=== PATIENT | female | born 1975 | race Two or more races ===

== ENCOUNTER 2018-03-30 10:05 | Outpatient (CLI) | payer OTHER | END 2018-03-30 10:11 | disposition home or self-care (01) | LOC: MAMO-SONO 10:05 | DX: Z12.31 Encounter for screening mammogram for malignant neoplasm of breast (principal); N64.51 Induration of breast; N92.4 Excessive bleeding in the premenopausal period ==

== ENCOUNTER → 2021-02-15 09:59 | Outpatient (CLI) | payer OTHER | END | disposition home or self-care (01) | LOC: LAB 09:59 | PROVIDERS: ATTEND General Practice | DX: E03.8 Other specified hypothyroidism (principal); Z00.01 Encounter for general adult medical examination with abnormal findings; Z12.11 Encounter for screening for malignant neoplasm of colon; Z11.3 Encounter for screening for infections with a predominantly sexual mode of transmission; Z11.4 Encounter for screening for human immunodeficiency virus [HIV]; Z13.228 Encounter for screening for other metabolic disorders; Z13.220 Encounter for screening for lipoid disorders; Z13.0 Encounter for screening for diseases of the blood and blood-forming organs and certain disorders involving the immune mechanism; Z13.1 Encounter for screening for diabetes mellitus; Z12.31 Encounter for screening mammogram for malignant neoplasm of breast; Z68.34 Body mass index [BMI] 34.0-34.9, adult; R73.03 Prediabetes ==

== ENCOUNTER → 2021-02-28 | Outpatient (CLI) | payer OTHER | END | disposition home or self-care (01) | LOC: MAMO-SONO 08:15 | PROVIDERS: ATTEND General Practice | DX: Z00.01 Encounter for general adult medical examination with abnormal findings (principal); Z12.11 Encounter for screening for malignant neoplasm of colon; Z11.3 Encounter for screening for infections with a predominantly sexual mode of transmission; Z11.4 Encounter for screening for human immunodeficiency virus [HIV]; Z13.228 Encounter for screening for other metabolic disorders; Z13.220 Encounter for screening for lipoid disorders; Z13.29 Encounter for screening for other suspected endocrine disorder; Z13.0 Encounter for screening for diseases of the blood and blood-forming organs and certain disorders involving the immune mechanism; Z13.1 Encounter for screening for diabetes mellitus; Z12.31 Encounter for screening mammogram for malignant neoplasm of breast; Z68.34 Body mass index [BMI] 34.0-34.9, adult; R07.89 Other chest pain ==

== ENCOUNTER 2023-01-31 09:17 | Outpatient (CLI) | payer OTHER | END 2023-01-31 09:32 | disposition home or self-care (01) | LOC: LAB 09:17 | PROVIDERS: ATTEND Obstetrics & Gynecology | DX: D64.3 Other sideroblastic anemias (principal); N39.0 Urinary tract infection, site not specified; K74.60 Unspecified cirrhosis of liver; E78.00 Pure hypercholesterolemia, unspecified; E03.9 Hypothyroidism, unspecified; N64.3 Galactorrhea not associated with childbirth; E11.8 Type 2 diabetes mellitus with unspecified complications; Z85.43 Personal history of malignant neoplasm of ovary; Z85.44 Personal history of malignant neoplasm of other female genital organs; E55.9 Vitamin D deficiency, unspecified ==

== ENCOUNTER 2023-02-10 08:10 | Outpatient (CLI) | payer OTHER | END 2023-02-10 08:36 | disposition home or self-care (01) | LOC: MAMO-SONO 08:10 | PROVIDERS: ATTEND Obstetrics & Gynecology | DX: N64.51 Induration of breast (principal); Z12.31 Encounter for screening mammogram for malignant neoplasm of breast ==

== ENCOUNTER 2023-02-14 08:54 | Outpatient (CLI) | payer OTHER ==
[2023-02-14 09:49] LABS: HEMOGLOBIN 12.3 g/dL (12.0-15.00); MEAN CELL VOLUME 86.2 fL (80.00-100.00); MEAN CORPUSCULAR HEMOGLOBIN 29.6 pg (27.00-32.0); MEAN CORPUSCULAR HGB CONC 34.3 g/dl (32.0-36.0); PLATELET COUNT 271 K/uL (150-450); RED BLOOD COUNT 4.17 M/uL (4.00-6.00); RED CELL DISTRIBUTION WIDTH 14.4 % (11.5-14.5)
== END 2023-02-14 08:56 | disposition home or self-care (01) ==
LOC: LAB 08:54
PROVIDERS: ATTEND General Practice
DX: R21 Rash and other nonspecific skin eruption (principal); R51.9 Headache, unspecified; M25.579 Pain in unspecified ankle and joints of unspecified foot

== ENCOUNTER 2023-09-05 09:57 | Outpatient (CLI) | payer OTHER ==
[2023-09-05 12:35] LABS: URINE APPEARANCE Clear; URINE BILIRRUBIN Negative (NEGATIVE); URINE BLOOD Negative; URINE COLOR Yellow; URINE GLUCOSE Negative (NEGATIVE); URINE LEUKOCYTE Small; URINE NITRATE Negative; URINE PROTEIN Negative (NEGATIVE); URINE UROBILINOGEN 0.2 E.U./dl
[2023-09-05 12:36] LABS: URINE EPITHELIAL CELLS 32.2 uL (0.0-38.8); URINE RBC 5.1 uL (0.0-20.8); URINE WBC 14.5 uL (0.0-23.2)
[2023-09-05 12:36] LABS: HEMATOCRIT 37.5 % (36.0-45.00); HEMOGLOBIN 12.9 g/dL (12.0-15.00); MEAN CELL VOLUME 87.6 fL (80.00-100.00); MEAN CORPUSCULAR HEMOGLOBIN 30.2 pg (27.00-32.0); MEAN CORPUSCULAR HGB CONC 34.5 g/dl (32.0-36.0); PLATELET COUNT 276 K/uL (150-450); RED BLOOD COUNT 4.28 M/uL (4.00-6.00); RED CELL DISTRIBUTION WIDTH 13.8 % (11.5-14.5)
[2023-09-05 13:41] LABS: ALBUMIN 3.8 gm/dL (3.4-5.0); ALKALINE PHOSPHATASE 88 U/L (50-136); ALT/SGPT 44 U/L (12-78); ANION GAP 9 (10.0-20.0); AST/SGOT 26 U/L (15-37); BILIRUBIN TOTAL 0.42 mg/dL (0.3-1.2); BILIRUBIN,CONJUGATED < 0.10 mg/dL (0.0-0.2); BILIRUBIN,UNCONJUGATED 0.32 mg/dL (0.0-0.6); BLOOD UREA NITROGEN 11 mg/dL (7-18); BUN CREA RATIO 17 (7.0-25.0); CALCIUM 9.6 mg/dL (8.5-10.1); CARBON DIOXIDE 29 mEq/L (21-32); CHLORIDE 108 mmol/L (98-107); CREATININE SERUM 0.65 mg/dL (0.55-1.02); GFR 96.88; GLOBULINA 3.1 G/DL (2.4-3.5); GLUCOSE FASTING 89 mg/dL (65-100); HDL 45 mg/dl (40-60); OSMOLALITY SERUM 280 MOSM/KG (275-295); SODIUM 141 mmol/L (136-145); T3 UPTAKE 30 % (30-39); T4 TOTAL 8.79 UG/DL (4.8-13.9); TOTAL PROTEIN 6.9 gm/dL (6.4-8.2); TSH 0.682 uIU/mL (0.358-3.74); VLDL 43 (0-39)
[2023-09-05 13:42] LABS: CHOL HDL RATIO 6.3 (0-5.0); CHOLESTEROL 283 mg/dL (0-200); LDL 194 mg/dl (0-130); TRIGLYCERIDES 219 mg/dL (0-150)
[2023-09-06 12:45] LABS: T3 TOTAL 1.16 ng/ml (0.846-2.02); VITAMIN D3 25 HYDROXY 26.8 ng/ml (30-120)
== END 2023-09-05 10:00 | disposition home or self-care (01) ==
LOC: LAB 09:57
DX: Z13.1 Encounter for screening for diabetes mellitus (principal); Z13.220 Encounter for screening for lipoid disorders; Z13.0 Encounter for screening for diseases of the blood and blood-forming organs and certain disorders involving the immune mechanism; Z13.29 Encounter for screening for other suspected endocrine disorder; Z12.11 Encounter for screening for malignant neoplasm of colon; Z11.3 Encounter for screening for infections with a predominantly sexual mode of transmission; Z11.9 Encounter for screening for infectious and parasitic diseases, unspecified; Z12.31 Encounter for screening mammogram for malignant neoplasm of breast; Z13.21 Encounter for screening for nutritional disorder; Z12.4 Encounter for screening for malignant neoplasm of cervix; Z13.820 Encounter for screening for osteoporosis; Z11.2 Encounter for screening for other bacterial diseases; Z68.35 Body mass index [BMI] 35.0-35.9, adult; E55.9 Vitamin D deficiency, unspecified

== ENCOUNTER 2024-06-13 09:38 | Outpatient (CLI) | payer OTHER | END 2024-06-13 09:48 | disposition home or self-care (01) | LOC: MAMO-SONO 09:38 | PROVIDERS: ATTEND Specialist | DX: N63.0 Unspecified lump in unspecified breast (principal); Z12.31 Encounter for screening mammogram for malignant neoplasm of breast ==